=== PATIENT | female | born 1955 | race Caucasian/White ===

== ENCOUNTER 2017-03-07 08:29 | Day surgery (SDC) | payer MEDICAID ==
[~2017-03-07 08:29] MED LIST: Ciprofloxacin/Dexamethasone 0.3-0.1% Otic Susp 7.5 ML Bottle ONE; EPINEPHrine 1 MG/ML SDV ONE; Gelatin Sponge,Absorbable 12-7 mm Sponge TOP ONE; Lactated Ringers 1,000 ML IV SCH; Lidocaine 2% with EPINEPHrine 1:100,000 20 ML MDV ONE; Octyl 2-Cyanoacrylate 1 Tube ONE; ceFAZolin 2 GM in Premix Bag 1 BAG IV ONE
[2017-03-07] MEDS ORDERED: Lactated Ringers 1,000 ML IV SCH (09:15)
--- NOTE | 2017-03-07 09:57 | PCM.HP ---
H&P History of Present Illness - General Date of Service: 03/07/17 Admit Problem/Dx: Admission Diagnosis/Problem Admission Diagnosis/Problem Perforation of tympanic membrane - History of Present Illness Initial Comments - Free Text/Narative: Left ear infections - 1 year Is undergoing Left tympanoplasty today for above and dizziness and hearing loss Detailed history per clinic note dated 12/28/16 and 01/11/2017. NO change in medical issues / medications. Says she has been off heart medication - Related Data Allergies/Adverse Reactions: Allergies Allergy/AdvReac Type Severity Reaction Status Date / Time No Known Allergies Allergy Verified 01/25/17 12:33 Home Medications: Home Meds ALPRAZolam [Xanax] 1 mg PO TID 01/25/17 [History] Amitriptyline HCl 100 mg PO BEDTIME 01/25/17 [History] Butalb/Acetaminophen/Caffeine [Iwrobjaf-Dvsjnkyyeusns-Qrcf Cp] 1 - 2 tab PO ASDIRECTED PRN 01/25/17 [History] Isosorbide Mononitrate [Imdur] 30 mg PO DAILY PRN 01/25/17 [History] Lansoprazole [Prevacid] 30 mg PO ASDIRECTED 01/25/17 [History] Lisdexamfetamine Dimesylate [Vyvanse] 1 tab PO ASDIRECTED 01/25/17 [History] Lisdexamfetamine Dimesylate [Vyvanse] 50 mg PO DAILY 01/25/17 [History] Promethazine HCl 0.5 tab PO ASDIRECTED PRN 01/25/17 [History] QUEtiapine Fumarate [Seroquel] 50 mg PO BEDTIME 01/25/17 [History] Venlafaxine HCl [Venlafaxine HCl ER] 75 mg PO DAILY 01/25/17 [History] Venlafaxine HCl [Venlafaxine HCl ER] 150 mg PO DAILY 01/25/17 [History] Past Medical History HEENT History: Reports: Other (See Below) Other HEENT History: wears glasses, has top denture, tinnitus, ruptured tympanic membrane Gastrointestinal History: Reports: GERD Genitourinary History: Reports: None CLOTH REELER History: Reports: None Neurological History: Reports: Migraines Psychiatric History: Reports: Anxiety, Depression Endocrine/Metabolic History: Reports: Obesity/BMI 30+ Oncologic (Cancer) History: Reports: Breast - Past Surgical History Head Surgeries/Procedures: Reports: None Female Surgical History: Reports: Hysterectomy, Mastectomy, Oophorectomy Other Female Surgeries/Procedures: hysterectomy, inocencio breast mastectomy Oncologic Surgical History: Reports: Mastectomy Social & Family History - Tobacco Use Smoking Status *Q: Former Smoker Used Tobacco, but Quit: Yes Month Tobacco Last Used: quit smoking 1 yr ago - Caffeine Use Caffeine Use: Reports: Soda - Recreational Drug Use Recreational Drug Use: No Drug Use in Last 12 Months: No H&P Review of Systems - Review of Systems: Review Of Systems: ROS reveals no pertinent complaints other than HPI. Exam - Exam Exam: See Below - Vital Signs Vital Signs: Last Vital Signs Temp 37.5 C 03/07/17 08:42 Pulse 82 03/07/17 08:42 Resp 16 03/07/17 08:42 BP 106/57 L 03/07/17 08:42 Pulse Ox 95 03/07/17 08:42 Weight: 91.626 kg - Exam General: Alert, Oriented HEENT: EACs Clear, Nares Patent, Posterior Pharynx Clear, Other Neck: Supple, Trachea Midline Lungs: Clear to Auscultation Cardiovascular: Regular Rate, Regular Rhythm Physical Exam Comments:: Left Tympanic membrane - post small perforation present - approx 20%. Me - clear *Q Meaningful Use (ADM) - VTE *Q VTE Criteria *Q: - Stroke *Q Stroke Criteria *Q: - AMI *Q AMI Criteria *Q: Problem List Initiated/Reviewed/Updated: Yes Orders Last 24hrs: Active Orders 24 hr Category Date Time Status Lactated Ringers [Ringers, Lactated] 1,000 ml Med 03/07/17 09:15 Active IV ASDIRECTED Medication Orders Lactated Ringer's (Ringers, Lactated) 1,000 mls @ 125 mls/hr IV ASDIRECTED TIMOTHY Assessment/Plan Comment:: Left TM perforatio - For Left tympanoplasty under GA - Pre op orders in place
[2017-03-07] MEDS ORDERED: Propofol 200 MG/20 ML SDV ONE ×2 (10:17→12:08)
[2017-03-07] MEDS ORDERED: fentaNYL 100 MCG/2 ML SDV ONE ×3 (10:17→13:38)
[2017-03-07] MEDS ORDERED: Midazolam 1 MG/ML 2 ML SDV ONE (10:17)
[2017-03-07] MEDS ORDERED: Dexamethasone 4 MG/ML 5 ML MDV ONE (10:21)
[2017-03-07] MEDS ORDERED: Ondansetron 4 MG/2 ML SDV ONE (10:21)
--- NOTE | 2017-03-07 10:37 | PCM.PREANE ---
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 - tamoxifen daily) Pulmonary: No Symptoms Cardiovascular: Other (CAD using isorbide daily) Gastrointestinal: Other (GERD - treated daily) Neurological: No Symptoms Other: Reports: Depression, Anxiety - Physical Assessment NPO Status Date: 03/06/17 NPO Status Time: 23:30 O2 Sat by Pulse Oximetry: 95 Respiratory Rate: 16 Vital Signs: Last Vital Signs Temp 99.5 F 03/07/17 08:42 Pulse 82 03/07/17 08:42 Resp 16 03/07/17 08:42 BP 106/57 L 03/07/17 08:42 Pulse Ox 95 03/07/17 08:42 Height: 5 ft 4 in Weight: 202 lb ASA Class: 3 Mental Status: Alert & Oriented x3 Airway Class: Mallampati = 1 Dentition: Reports: Dentures (u/l removed) Thyro-Mental Finger Breadths: 4 Mouth Opening Finger Breadths: 3 ROM/Head Extension: Full Lungs: Clear to Auscultation, Normal Respiratory Effort Cardiovascular: Regular Rate, Regular Rhythm, No Murmurs - Imaging/EKG Impressions: Baseline EKG ordered since she is on cardioactive meds and carries Dx: CAD - Allergies Allergies/Adverse Reactions: Allergies Allergy/AdvReac Type Severity Reaction Status Date / Time No Known Allergies Allergy Verified 01/25/17 12:33 - Blood Blood Available: No Product(s) Available: None - Anesthesia Plan Pre-Op Medication Ordered: None - Acknowledgements Anesthesia Type Planned: General Anesthesia (OET) Pt an Appropriate Candidate for the Planned Anesthesia: Yes Alternatives and Risks of Anesthesia Discussed w Pt/Guardian: Yes Pt/Guardian Understands and Agrees with Anesthesia Plan: Yes PreAnesthesia Questionnaire HEENT History: Reports: Other (See Below) Other HEENT History: wears glasses, has top denture, tinnitus, ruptured tympanic membrane Gastrointestinal History: Reports: GERD Genitourinary History: Reports: None LINE DANCER History: Reports: None Neurological History: Reports: Migraines Psychiatric History: Reports: Anxiety, Depression Endocrine/Metabolic History: Reports: Obesity/BMI 30+ Oncologic (Cancer) History: Reports: Breast - Past Surgical History Head Surgeries/Procedures: Reports: None Female Surgical History: Reports: Hysterectomy, Mastectomy, Oophorectomy Other Female Surgeries/Procedures: hysterectomy, inocencio breast mastectomy Oncologic Surgical History: Reports: Mastectomy - SUBSTANCE USE Smoking Status *Q: Former Smoker Tobacco Use Within Last Twelve Months: No Recreational Drug Use History: No - HOME MEDS Home Medications: Home Meds ALPRAZolam [Xanax] 1 mg PO TID 01/25/17 [History] Amitriptyline HCl 100 mg PO BEDTIME 01/25/17 [History] Butalb/Acetaminophen/Caffeine [Clodbfgt-Dwjflfzjmkmrw-Rwxv Cp] 1 - 2 tab PO ASDIRECTED PRN 01/25/17 [History] Isosorbide Mononitrate [Imdur] 30 mg PO DAILY PRN 01/25/17 [History] Lansoprazole [Prevacid] 30 mg PO ASDIRECTED 01/25/17 [History] Lisdexamfetamine Dimesylate [Vyvanse] 1 tab PO ASDIRECTED 01/25/17 [History] Lisdexamfetamine Dimesylate [Vyvanse] 50 mg PO DAILY 01/25/17 [History] Promethazine HCl 0.5 tab PO ASDIRECTED PRN 01/25/17 [History] QUEtiapine Fumarate [Seroquel] 50 mg PO BEDTIME 01/25/17 [History] Venlafaxine HCl [Venlafaxine HCl ER] 75 mg PO DAILY 01/25/17 [History] Venlafaxine HCl [Venlafaxine HCl ER] 150 mg PO DAILY 01/25/17 [History] - CURRENT (IN HOUSE) MEDS Current Meds: Current Medications Lactated Ringer's (Ringers, Lactated) 1,000 mls @ 125 mls/hr IV ASDIRECTED TIMOTHY Discontinued Medications Ciprofloxacin/Dexamethasone (Ciprodex Otic Susp) Confirm Administered Dose 7.5 ml .ROUTE .STK-MED ONE Stop: 03/07/17 07:36 Dexamethasone (Dexamethasone) Confirm Administered Dose 20 mg .ROUTE .STK-MED ONE Stop: 03/07/17 10:22 Epinephrine HCl (Adrenalin 1:1000) Confirm Administered Dose 2 mg .ROUTE .STK- MED ONE Stop: 01/31/17 07:25 Epinephrine HCl (Adrenalin 1:1000) Confirm Administered Dose 1 mg .ROUTE .STK- MED ONE Stop: 03/07/17 07:36 Fentanyl (Sublimaze) Confirm Administered Dose 200 mcg .ROUTE .STK-MED ONE Stop: 03/07/17 10:18 Gelatin (Gelfoam 12-7 Mm) Confirm Administered Dose 1 each TOP .STK-MED ONE Stop: 01/31/17 07:25 Gelatin (Gelfoam 12-7 Mm) Confirm Administered Dose 1 each TOP .STK-MED ONE Stop: 03/07/17 07:36 Cefazolin Sodium/Dextrose 2 gm (/ Premix) 50 mls @ 100 mls/hr IV ONETIME ONE Stop: 01/30/17 17:40 Lactated Ringer's (Ringers, Lactated) 1,000 mls @ 125 mls/hr IV ASDIRECTED TIMOTHY Lidocaine HCl (Xylocaine-Mpf 1%) Confirm Administered Dose 5 ml .ROUTE .STK-MED ONE Stop: 03/07/17 10:22 Lidocaine/Epinephrine (Xylocaine 2% With Epinephrine 1:100,000) Confirm Administered Dose 20 ml .ROUTE .STK-MED ONE Stop: 01/31/17 07:26 Midazolam HCl (Versed 1 Mg/Ml) Confirm Administered Dose 2 mg .ROUTE .STK-MED ONE Stop: 03/07/17 10:18 Octyl Cyanoacrylate (Dermabond Advance) Confirm Administered Dose 1 applic .ROUTE .STK-MED ONE Stop: 01/31/17 07:26 Octyl Cyanoacrylate (Dermabond Advance) Confirm Administered Dose 1 applic .ROUTE .STK-MED ONE Stop: 03/07/17 07:37 Ondansetron HCl (Zofran) Confirm Administered Dose 4 mg .ROUTE .STK-MED ONE Stop: 03/07/17 10:22 Propofol (Diprivan 20 Ml) Confirm Administered Dose 200 mg .ROUTE .STK-MED ONE Stop: 03/07/17 10:18
--- NOTE | 2017-03-07 11:31 | PCM.OPNOTE ---
- General Post-Op/Procedure Note Date of Surgery/Procedure: 03/07/17 Condition: Good Free Text/Narrative:: Diagnosis: Left tympanic membrane perforation; left sided mild conductive hearing loss Procedure: Left tympanoplasty [ CPT 93417] Surgeon: Joann Mancini MD Anesthesia: GA Anesthesiologist: Dr Miller Date of procedure: 03/07/17 Indications: She presented to my office with c/o Left otalgia, intermittent tinnitus and vertigo. On Audiogram - she had a mild L conductive hearing loss. On exam she had a posterior L TM perforation as described. She was consented for surgery. Findings: Left tympanic membrane perforation - approximately 20%; posterior superior central; ISj visible through the perforation. All ossicles intact ; gentle movement of incus transmitted to the joint. Chorda tympani visualized and intact. Operation details: The patient was brought to the operating room. General anesthesia was administered with an endotracheal tube. He was appropriately positioned. An exam under microscope was performed-findings as above. A transcanal injection of 2% lidocaine with 1: 100, 000 epinephrine was performed. Postauricular area was also injected. A total of 2 mils was used. The part was prepped and draped in a standard sterile fashion. The microscope was brought in. A horizontal transverse canal wall incision was made with a round knife approximately 5 mm lateral to the annulus starting at 6 o'clock position and extending to 12 o ' clock. A cotton wool wall soaked in 1:1000 epinephrine was then left in the ear canal. Microscope was moved out. Postauricular incision was made extending from the root of pinna superiorly to the level of the floor of external auditory canal inferiorly approximately 5 mm from the post auricular groove with a 15 blade. Superiorly dissection was carried out with a hemostat and temporalis fascia was exposed. A 3 pronged self- retaining retractor was applied. Further retraction was done with the Sen retractor. Incision in the fascia was made with a 15 blade. Fascia was freed from the underlying temporalis muscle with a Watson elevator. An appropriately sized piece of fascia was removed with iris scissors. Hemostasis was ensured. The graft was cleaned and left to dry up on a block. Further post auricular dissection was performed and the U-shaped fascio periosteal flap adjacent to the external auditory canal was made. This flap was further dissected with freer and periosteal dissector , continuing this dissection over to the canal wall till the previously made horizontal transcanal incision was reached. At this point the cotton wool was removed, a quarter inch Eckerman drain was introduced and held in place with a clamp to hold the pinna forward. Also a right sided plester self retaining retractor was applied to help retain the pinna forward. Edges of the perforation were freshened with a curved needle. Tympanomeatal flap was elevated with a round knife and flap elevator, till the canal wall was seen dipping at the annulus. Annulus was freed inferiorly and a tympanotomy was performed. Middle ear mucosa was resected with a needle. The elevation of the annulus was performed superiorly up to 12:00 position. The ossicles were intact. The tendon of tensor tympani was resected;the tympanic membrane was dissected off the chorda tympani and adjacent handle of malleus. Middle ear was packed with Gelfoam soaked in Ciprodex. The temporalis fascia graft was appropriately sized and introduced as an underlay technique, overlying the chorda and tucked under the superior aspect of handle of malleus; remaining part was underlying handle of malleus. All edges of the graft were tucked medial to the annulus and edges of the perforation. The tympanomeatal flap was laid back over the graft. Further pieces of Gelfoam soaked in Ciprodex were placed over the graft and tympanic membrane. The Ricardo drain was removed and the lateral flap was laid back carefully over the canal wall. Outer aspect of the external canal was packed with Adaptic dressing soaked in bacitracin ointment as a roll and then as a strip dressing. Postauricular wound was sutured in layers- flap with 3-0 Vicryl, fascia and subcutaneous tissue and with 3-0 Vicryl and subcuticular 4-0 Monocryl. Dermabond was applied to the skin.. Complete hemostasis was ensured. A pressure dressing was applied. This concluded the procedure. The patient was turned over to the anesthesia team for recovery. Specimens: none IV fluids: 1500 ml Blood loss : 5 ml Blood products: nil Disposition: PACU for recovery Follow up: In 1 day for removal of head bandage.
[2017-03-07] MEDS ORDERED: Ciprofloxacin/Dexamethasone 0.3-0.1% Otic Susp 7.5 ML Bottle ONE (11:42)
[2017-03-07] MEDS ORDERED: Rocuronium 10 MG/ML 10 ML Syringe ONE (12:08)
[2017-03-07] MEDS ORDERED: Phenylephrine/Normal Saline 100 MCG/ML 10 ML Syringe ONE (12:13)
[2017-03-07] MEDS ORDERED: Gelatin Sponge,Absorbable 12-7 mm Sponge TOP ONE (14:24)
[2017-03-07] MEDS ORDERED: Neostigmine Methylsulfate 1 MG/ML 5 ML Syringe ONE (14:30)
--- NOTE | 2017-03-07 15:32 | PCM.POSTAN ---
POST ANESTHESIA ASSESSMENT - MENTAL STATUS Mental Status: Alert, Oriented - RESPIRATORY Respiratory Status: Respiratory Rate WNL, Airway Patent, O2 Saturation Stable - CARDIOVASCULAR CV Status: Pulse Rate WNL, Blood Pressure Stable - GASTROINTESTINAL GI Status: No Symptoms - PAIN Pain Score: 0 - POST OP HYDRATION Hydration Status: Adequate & Stable
[2017-03-07] MEDS ORDERED: Acetaminophen/oxyCODONE 325-5 MG Tab PO PRN (15:35)
[2017-03-07] MEDS ORDERED: Ondansetron 4 MG/2 ML SDV IVPUSH PRN (15:35)
[2017-03-07] MEDS ORDERED: Haloperidol Lactate 5 MG/ML SDV IM ONE (15:42)
[2017-03-07] MEDS ORDERED: Ketorolac 30 MG/ML SDV IM ONE (15:44)
[2017-03-07 17:08] VITALS: BP 115/51
--- NOTE | 2017-03-07 17:16 | PCM48HPAN ---
Post Anesthesia Note - EVALUATION WITHIN 48HRS OF ANESTHETIC Vital Signs in Normal Range: Yes Patient Participated in Evaluation: Yes Respiratory Function Stable: Yes Airway Patent: Yes Cardiovascular Function Stable: Yes Hydration Status Stable: Yes Pain Control Satisfactory: Yes Nausea and Vomiting Control Satisfactory: Yes Mental Status Recovered: Yes
== END 2017-03-07 17:00 | disposition home or self-care (01) ==
LOC: MW.SDS 08:29
PROVIDERS: ATTEND Otolaryngology
DX: H72.92 Unspecified perforation of tympanic membrane, left ear (principal); H90.2 Conductive hearing loss, unspecified; K21.9 Gastro-esophageal reflux disease without esophagitis; G43.909 Migraine, unspecified, not intractable, without status migrainosus; F41.9 Anxiety disorder, unspecified; F32.9 Major depressive disorder, single episode, unspecified; E66.9 Obesity, unspecified; Z85.3 Personal history of malignant neoplasm of breast; Z87.891 Personal history of nicotine dependence; Z90.13 Acquired absence of bilateral breasts and nipples; Z90.710 Acquired absence of both cervix and uterus; Z90.721 Acquired absence of ovaries, unilateral; Z79.899 Other long term (current) drug therapy; Z68.35 Body mass index [BMI] 35.0-35.9, adult
CPT/HCPCS: 69643; 93005; A9270; J0171; J1100; J1630; J1885; J2250; J2405; J3010; 00126; J2704

== ENCOUNTER 2020-03-08 01:48 | Emergency (ER) | payer MEDICARE, MEDICAID ==
[2020-03-08] MEDS ORDERED: Sodium Chloride 0.9% 10 ML Syringe FLUSH PRN (02:02)
[2020-03-08] MEDS ORDERED: LORazepam 2 MG/ML SDV IVPUSH ONE (02:02)
[2020-03-08] MEDS ORDERED: Famotidine 20 MG/2 ML SDV IVPUSH ONE (02:02)
[2020-03-08] MEDS ORDERED: Sodium Chloride 0.9% 1,000 ML IV ONE (02:02)
[2020-03-08] MEDS ORDERED: Sodium Chloride 0.9% 2.5 ML Syringe FLUSH PRN (02:02)
[2020-03-08] MEDS ORDERED: Ondansetron 4 MG/2 ML SDV IVPUSH ONE ×2 (02:02→05:29)
--- NOTE | 2020-03-08 02:10 | EDM.PDOC ---
ED HPI GENERAL MEDICAL PROBLEM - General Chief Complaint: Gastrointestinal Problem Stated Complaint: CHEST PAIN, SHORTNESS OF BREATH Time Seen by Provider: 03/08/20 01:50 Source of Information: Reports: Patient History Limitations: Reports: No Limitations - History of Present Illness INITIAL COMMENTS - FREE TEXT/NARRATIVE: History of present illness: [Patient 65-year-old female who presents with constipation and indigestion. She states that she has not been able to poop in about 5 days. Her PCP told her to start taking Senokot which she did but this has not resulted in a bowel movement yet. She states that because of the symptoms she was scheduled get a CT scan in 2 days time. She developed indigestion earlier this evening in spite of not having had anything recently to eat, she thought that was odd and thought maybe it was related to the constipation and that maybe she has a obstruction of some kind. She denies chest pain, she says the discomfort occasionally makes her short of breath. She said the symptoms have exacerbated her anxiety for which she takes Ativan at home. She denies fever and chills. ] Review of systems: As per history of present illness and below otherwise all systems reviewed and negative. Past medical history: As per history of present illness and as reviewed below otherwise noncontributory. Surgical history: As per history of present illness and as reviewed below otherwise noncontributory. Social history: No reported history of drug or alcohol abuse. Family history: As per history of present illness and as reviewed below otherwise noncontributory. Physical exam: General: Awake, alert, no acute distress, A&O X3, anxious HEENT: Atraumatic, normocephalic, pupils reactive, negative for conjunctival pallor or scleral icterus, mucous membranes moist, throat clear, neck supple, nontender, trachea midline. Lungs: Clear to auscultation, breath sounds equal bilaterally, chest nontender. Heart: RRR, normal S1S2, no JVD. Abdomen: Soft, nondistended, nontender. Negative for masses or hepatosplenomegaly. Negative for costovertebral tenderness. Pelvis: Stable nontender. Genitourinary: Deferred. Rectal: Deferred. Extremities: Atraumatic, no edema, Neurovascular unremarkable. Neuro: Motor and sensory grossly intact throughout. Exam nonfocal. Diagnostics: [] Therapeutics: [] Impression: [] Plan: [] Definitive disposition and diagnosis as appropriate pending reevaluation and review of above. Left Middle Abdomen Pain Score (Numeric/FACES): 4 - Related Data Allergies Allergy/AdvReac Type Severity Reaction Status Date / Time No Known Allergies Allergy Verified 03/08/20 01:58 Home Meds: Home Meds Amitriptyline HCl 100 mg PO BEDTIME 01/25/17 [History] Butalb/Acetaminophen/Caffeine [Phunidrs-Jkpuzbxyyhoor-Wcfh Cp] 1 - 2 tab PO ASDIRECTED PRN 01/25/17 [History] Lansoprazole [Prevacid] 30 mg PO ASDIRECTED 01/25/17 [History] Venlafaxine HCl [Venlafaxine HCl ER] 75 mg PO DAILY 01/25/17 [History] Venlafaxine HCl [Venlafaxine HCl ER] 150 mg PO DAILY 01/25/17 [History] LORazepam [Ativan] 1 mg PO TID 03/08/20 [History] atorvaSTATin Calcium [Lipitor] 20 mg PO DAILY 03/08/20 [History] metFORMIN HCl [Metformin HCl ER] 750 mg PO BEDTIME 03/08/20 [History] Past Medical History HEENT History: Reports: Other (See Below) Other HEENT History: wears glasses, has top denture, tinnitus, ruptured tympanic membrane Gastrointestinal History: Reports: GERD Genitourinary History: Reports: None 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: None Neurological History: Reports: Migraines Psychiatric History: Reports: Anxiety, Depression Endocrine/Metabolic History: Reports: Obesity/BMI 30+ Oncologic (Cancer) History: Reports: Breast - Past Surgical History Head Surgeries/Procedures: Reports: None Female Surgical History: Reports: Hysterectomy, Mastectomy, Oophorectomy Other Female Surgeries/Procedures: hysterectomy, inocencio breast mastectomy Oncologic Surgical History: Reports: Mastectomy Social & Family History - Caffeine Use Caffeine Use: Reports: Soda ED ROS GENERAL - Review of Systems Review Of Systems: Comprehensive ROS is negative, except as noted in HPI. ED EXAM, GI/ABD - Physical Exam Exam: See Below (see h and p) EKG INTERPRETATION EKG Date: 03/08/20 Time: 01:52 Rhythm: NSR Rate (Beats/Min): 121 QRS: RBBB (LAFB) Comparison: Change From Previous EKG (the LAFB is more pronounced compared to EKG on 03-07-17) Course - Vital Signs Text/Narrative:: Patient had negative serial troponins, CT scan shows possible sclerosing mesenteritis, but otherwise no evidence for diverticulitis, no evidence for acute obstruction, no evidence for surgical emergency or obvious infectious etiology. Ultrasound shows biliary sludge in the gallbladder, but no evidence for cholecystitis, no gallbladder wall thickening, no pericholecystic fluid. She has benign belly exam. No point tenderness. No rebound or guarding. Her initial tachycardia improved, on reevaluation her heart rate was right around 100. She received medications both for anxiety, and indigestion and for constipation including magnesium citrate. She did not produce a bowel movement here. We discussed possibly using an enema, she declined stating she would rather try to produce a bowel movement with oral medications. I discussed with her using MiraLAX at home, [id number], twice a day in juice or water as needed to help soften the stool as well. Her EKG is nonischemic, she has no active chest pain, she is not short of breath, chest x-ray was clear. She does have an elevated white blood cell count. Her lactic acid is normal. I do not see convincing evidence that she has a bacterial infection requiring antibiotics. She has no fever, no vomiting, is otherwise well-appearing and laughing with me in the room at the time of reassessment. Does not appear to be in any distress. UA was reassuring. Her creatinine is mildly elevated, I have no old lab values to compare this to, patient does tell me that she has been told in the past that her kidneys were "slow." She otherwise has no significant electrolyte derangements and she is producing urine here in the ED. Using a shared decision-making model we agreed to do a trial at home to see if after having a bowel movement her symptoms improve. Strict return precautions were provided which include intractable nausea vomiting, severe worsening abdominal pain, persistent high fever, etc. Patient understands this plan and she is agreeable with. She showed clinical improvement during her emergency department stay. She is nontoxic in appearance with a benign exam. Vital signs also improved prior to discharge. Last Recorded V/S: Last Vital Signs Temp 36.3 C 03/08/20 01:53 Pulse 102 H 03/08/20 05:45 Resp 16 03/08/20 05:45 BP 146/59 H 03/08/20 05:45 Pulse Ox 97 03/08/20 05:45 - Orders/Labs/Meds Orders: Active Orders 24 hr Category Date Time Status EKG Documentation Completion [RC] STAT Care 03/08/20 02:14 Active Sodium Chloride 0.9% [Saline Flush] Med 03/08/20 02:02 Active 10 ml FLUSH ASDIRECTED PRN Sodium Chloride 0.9% [Saline Flush] Med 03/08/20 02:02 Active 2.5 ml FLUSH ASDIRECTED PRN Saline Lock Insert [OM.PC] Stat Oth 03/08/20 02:02 Ordered Medication Orders Sodium Chloride (Saline Flush) 10 ml FLUSH ASDIRECTED PRN PRN Reason: Keep Vein Open Sodium Chloride (Saline Flush) 2.5 ml FLUSH ASDIRECTED PRN PRN Reason: Keep Vein Open Labs: Laboratory Tests 03/08/20 03/08/20 03/08/20 Range/Units 02:00 02:00 02:00 WBC 19.63 H (4.0-11.0) K/uL RBC 3.56 L (4.30-5.90) M/uL Hgb 11.0 L (12.0-16.0) g/dL Hct 35.1 L (36.0-46.0) % MCV 98.6 H (80.0-98.0) fL MCH 30.9 (27.0-32.0) pg MCHC 31.3 (31.0-37.0) g/dL RDW Std Deviation 48.8 (28.0-62.0) fl RDW Coeff of Hira 14 (11.0-15.0) % Plt Count 406 H (150-400) K/uL MPV 9.60 (7.40-12.00) fL Neut % (Auto) 82.5 H (48.0-80.0) % Lymph % (Auto) 12.7 L (16.0-40.0) % Florence % (Auto) 3.9 (0.0-15.0) % Eos % (Auto) 0.6 (0.0-7.0) % Baso % (Auto) 0.3 (0.0-1.5) % Neut # (Auto) 16.2 H (1.4-5.7) K/uL Lymph # (Auto) 2.5 H (0.6-2.4) K/uL Florence # (Auto) 0.8 (0.0-0.8) K/uL Eos # (Auto) 0.1 (0.0-0.7) K/uL Baso # (Auto) 0.1 (0.0-0.1) K/uL Nucleated RBC % 0.0 /100WBC Nucleated RBCs # 0 K/uL Lactate 1.8 (0.20-2.00) mmol/L Sodium 136 (136-145) mmol/L Potassium 4.3 (3.5-5.1) mmol/L Chloride 100 (98-107) mmol/L Carbon Dioxide 20.9 L (21.0-32.0) mmol/L BUN 23 H (7.0-18.0) mg/dL Creatinine 1.7 H (0.6-1.0) mg/dL Est Cr Clr Drug Dosing 26.93 mL/min Estimated GFR (MDRD) 30.1 ml/min Glucose 198 H (74-106) mg/dL Calcium 8.4 L (8.5-10.1) mg/dL Total Bilirubin 0.3 (0.2-1.0) mg/dL AST 23 (15-37) IU/L ALT 30 (14-63) IU/L Alkaline Phosphatase 84 (46-116) U/L Troponin I < 0.050 (0.000-0.056) ng/mL Total Protein 7.6 (6.4-8.2) g/dL Albumin 3.5 (3.4-5.0) g/dL Globulin 4.1 H (2.6-4.0) g/dL Albumin/Globulin Ratio 0.9 (0.9-1.6) Lipase 37 L (73-393) U/L Urine Color Urine Appearance Urine pH (5.0-8.0) Ur Specific Chapin (1.001-1.035) Urine Protein (NEGATIVE) mg/dL Urine Glucose (UA) (NEGATIVE) mg/dL Urine Ketones (NEGATIVE) mg/dL Urine Occult Blood (NEGATIVE) Urine Nitrite (NEGATIVE) Urine Bilirubin (NEGATIVE) Urine Urobilinogen (<2.0) EU/dL Ur Leukocyte Esterase (NEGATIVE) Urine RBC (0-2/HPF) Urine WBC (0-5/HPF) Ur Epithelial Cells (NONE-FEW) Urine Bacteria (NEGATIVE) 03/08/20 03/08/20 Range/Units 04:00 05:25 WBC (4.0-11.0) K/uL RBC (4.30-5.90) M/uL Hgb (12.0-16.0) g/dL Hct (36.0-46.0) % MCV (80.0-98.0) fL MCH (27.0-32.0) pg MCHC (31.0-37.0) g/dL RDW Std Deviation (28.0-62.0) fl RDW Coeff of Hira (11.0-15.0) % Plt Count (150-400) K/uL MPV (7.40-12.00) fL Neut % (Auto) (48.0-80.0) % Lymph % (Auto) (16.0-40.0) % Florence % (Auto) (0.0-15.0) % Eos % (Auto) (0.0-7.0) % Baso % (Auto) (0.0-1.5) % Neut # (Auto) (1.4-5.7) K/uL Lymph # (Auto) (0.6-2.4) K/uL Florence # (Auto) (0.0-0.8) K/uL Eos # (Auto) (0.0-0.7) K/uL Baso # (Auto) (0.0-0.1) K/uL Nucleated RBC % /100WBC Nucleated RBCs # K/uL Lactate (0.20-2.00) mmol/L Sodium (136-145) mmol/L Potassium (3.5-5.1) mmol/L Chloride (98-107) mmol/L Carbon Dioxide (21.0-32.0) mmol/L BUN (7.0-18.0) mg/dL Creatinine (0.6-1.0) mg/dL Est Cr Clr Drug Dosing mL/min Estimated GFR (MDRD) ml/min Glucose (74-106) mg/dL Calcium (8.5-10.1) mg/dL Total Bilirubin (0.2-1.0) mg/dL AST (15-37) IU/L ALT (14-63) IU/L Alkaline Phosphatase (46-116) U/L Troponin I < 0.050 (0.000-0.056) ng/mL Total Protein (6.4-8.2) g/dL Albumin (3.4-5.0) g/dL Globulin (2.6-4.0) g/dL Albumin/Globulin Ratio (0.9-1.6) Lipase (73-393) U/L Urine Color YELLOW Urine Appearance CLEAR Urine pH 6.0 (5.0-8.0) Ur Specific Chapin 1.010 (1.001-1.035) Urine Protein TRACE H (NEGATIVE) mg/dL Urine Glucose (UA) NEGATIVE (NEGATIVE) mg/dL Urine Ketones NEGATIVE (NEGATIVE) mg/dL Urine Occult Blood SMALL H (NEGATIVE) Urine Nitrite NEGATIVE (NEGATIVE) Urine Bilirubin NEGATIVE (NEGATIVE) Urine Urobilinogen 0.2 (<2.0) EU/dL Ur Leukocyte Esterase NEGATIVE (NEGATIVE) Urine RBC 2-5 (0-2/HPF) Urine WBC 0-1 (0-5/HPF) Ur Epithelial Cells FEW (NONE-FEW) Urine Bacteria RARE (NEGATIVE) Meds: Medications Generic Name Dose Route Start Last Admin Trade Name Freq PRN Reason Stop Dose Admin Sodium Chloride 10 ml 03/08/20 02:02 Saline Flush FLUSH ASDIRECTED PRN Keep Vein Open Sodium Chloride 2.5 ml 03/08/20 02:02 Saline Flush FLUSH ASDIRECTED PRN Keep Vein Open Discontinued Medications Generic Name Dose Route Start Last Admin Trade Name Freq PRN Reason Stop Dose Admin Al Hydroxide/Mg Hydroxide 15 0 ml 03/08/20 05:29 03/08/20 05:35 ml/ Lidocaine HCl 5 ml PO 03/08/20 05:30 1 each ONETIME ONE Administration Famotidine 20 mg 03/08/20 02:02 03/08/20 02:18 Pepcid IVPUSH 03/08/20 02:03 20 mg ONETIME ONE Administration Sodium Chloride 1,000 mls @ 999 mls/hr 03/08/20 02:02 03/08/20 02:16 Normal Saline IV 03/08/20 03:02 999 mls/hr .Bolus ONE Administration Sodium Chloride 2,000 mls @ 1,000 mls/hr 03/08/20 02:34 03/08/20 03:30 Normal Saline IV 03/08/20 04:33 1,000 mls/hr .Bolus ONE Administration Lorazepam 1 mg 03/08/20 02:02 03/08/20 02:20 Ativan IVPUSH 03/08/20 02:03 1 mg ONETIME ONE Administration Magnesium Citrate 0 ml 03/08/20 04:17 03/08/20 04:29 Citrate Of Magnesia PO 03/08/20 04:18 296 ml ONETIME ONE Administration Ondansetron HCl 4 mg 03/08/20 02:02 03/08/20 02:17 Zofran IVPUSH 03/08/20 02:03 4 mg ONETIME ONE Administration Ondansetron HCl 4 mg 03/08/20 05:29 03/08/20 05:35 Zofran IVPUSH 03/08/20 05:30 4 mg ONETIME ONE Administration Departure - Departure Time of Disposition: 06:35 Disposition: Home, Self-Care 01 Condition: Good Clinical Impression: Constipation, Indigestion - Discharge Information Instructions: Indigestion, [id number], Constipation, Adult, [id number] Referrals: Migdalia Haney NP [Primary Care Provider] - Forms: ED Department Discharge Additional Instructions: Follow-up with primary care doctor. Take all medications as previously prescribed. Return to the ER with any new or worsening symptoms. The following information is given to patients seen in the emergency department who are being discharged to home. This information is to outline your options for follow-up care. We provide all patients seen in our emergency department with a follow-up referral. The need for follow-up, as well as the timing and circumstances, are variable depending upon the specifics of your emergency department visit. If you don't have a primary care physician on staff, we will provide you with a referral. We always advise you to contact your personal physician following an emergency department visit to inform them of the circumstance of the visit and for follow-up with them and/or the need for any referrals to a consulting specialist. The emergency department will also refer you to a specialist when appropriate. This referral assures that you have the opportunity for follow-up care with a specialist. All of these measure are taken in an effort to provide you with optimal care, which includes your follow-up. Under all circumstances we always encourage you to contact your private physician who remains a resource for coordinating your care. When calling for follow-up care, please make the office aware that this follow-up is from your recent emergency room visit. If for any reason you are refused follow-up, please contact the [facility] Emergency Department at and asked to speak to the emergency department charge nurse. Sepsis Event Note (ED) - Evaluation Sepsis Screening Result: No Definite Risk - Focused Exam Vital Signs: Vital Signs Temp Pulse Resp BP Pulse Ox 03/08/20 05:45 102 H 16 146/59 H 97 03/08/20 04:33 107 H 16 126/66 94 L 03/08/20 03:39 100 16 126/59 L 96 03/08/20 01:53 36.3 C 121 H 26 H 111/45 L 94 L - My Orders Last 24 Hours: My Active Orders 03/08/20 02:02 Sodium Chloride 0.9% [Saline Flush] 10 ml FLUSH ASDIRECTED PRN Sodium Chloride 0.9% [Saline Flush] 2.5 ml FLUSH ASDIRECTED PRN Saline Lock Insert [OM.PC] Stat 03/08/20 02:14 EKG Documentation Completion [RC] STAT - Assessment/Plan Last 24 Hours: My Active Orders 03/08/20 02:02 Sodium Chloride 0.9% [Saline Flush] 10 ml FLUSH ASDIRECTED PRN Sodium Chloride 0.9% [Saline Flush] 2.5 ml FLUSH ASDIRECTED PRN Saline Lock Insert [OM.PC] Stat 03/08/20 02:14 EKG Documentation Completion [RC] STAT
[2020-03-08] MEDS ORDERED: Sodium Chloride 0.9% 2,000 ML IV ONE (02:34)
[2020-03-08 02:35] LABS: BLOOD UREA NITROGEN,BUN 23 mg/dL (7.0-18.0); CARBON DIOXIDE,CO2 20.9 mmol/L (21.0-32.0); CHLORIDE,CL 100 mmol/L (98-107); GLUCOSE RANDOM 198 mg/dL (74-106); LIPASE 37 U/L (73-393); POTASSIUM,K 4.3 mmol/L (3.5-5.1); SODIUM,NA 136 mmol/L (136-145)
--- NOTE | 2020-03-08 03:48 | CR ---
Indication : Indigestion. FINDINGS: A single portable chest x-ray shows a normal cardiac silhouette. The lungs show a small calcified granuloma in the lower right lung. No other focal pulmonary opacities. Sharp pleural margins. No pneumothorax. IMPRESSION: No evidence of acute pulmonary abnormalities. Dictated by Hernan Morataya MD @ 03/08/2020 3:47:32 AM Dictated by: Hernan Morataya MD @ 03/08/2020 03:47:50 (Electronically Signed)
--- NOTE | 2020-03-08 04:09 | CT ---
INDICATION : Post prandial pain. Elevated white cell count. Question diverticulitis. COMPARISON: None. FINDINGS: Upper normal size of the gallbladder. No significant inflammation or filling defects. Constipation through the redundant colon. No air or fluid in the peritoneum. 2 mm upper midpole calyceal calculus left kidney. IMPRESSION: 1. Query hydropic gallbladder. No acute inflammation. Consider all sound further tears a carrillo. 2. Acute on chronic constipation. Please note that all CT scans at this facility use dose modulation, iterative reconstruction, and/or weight-based dosing when appropriate to reduce radiation dose to as low as reasonably achievable. Dictated by Roberto Meadows MD @ Mar 08 2020 2:40PM Signed by Dr. Roberto Meadows @ Mar 08 2020 2:56PM
[2020-03-08] MEDS ORDERED: Magnesium Citrate Solution 296 ML Bottle PO ONE (04:17)
[2020-03-08] MEDS ORDERED: Alum Hydrox/Mag Hydrox/Simeth 15 ML, Lidocaine 2% 5 ML PO ONE ×2 (05:29)
--- NOTE | 2020-03-08 06:14 | US ---
INDICATION: Evaluate gallbladder. COMPARISON: CT of the abdomen and pelvis 03/08/2020 at 3:04 a.m. TECHNIQUE: Real time kent scale imaging and color Doppler analysis was performed of the right upper quadrant. FINDINGS: Liver: Liver size upper limits of normal measuring 18.1 cm in length. Normal echogenicity. No focal liver lesions. Gallbladder: Small amount of sludge within the gallbladder. No stones. No wall thickening or pericholecystic fluid. Negative sonographic Granda sign. Bile ducts: The common bile duct measures 6 mm in diameter which is upper limits of normal. No intrahepatic bile duct dilation. Pancreas: Not well seen due to shadowing bowel gas. Right kidney: The right kidney measures 10.1 cm in length. No hydronephrosis, calculus, or mass. Vascular: The IVC is patent. The abdominal aorta was not well seen due to shadowing bowel gas. IMPRESSION: 1. Small amount of gallbladder sludge without evidence of cholecystitis. 2. Exam is otherwise unremarkable. Dictated by Michell Roman MD @ Mar 08 2020 6:04AM Signed by Dr. Michell Roman @ Mar 08 2020 6:12AM
[2020-03-08 06:54] VITALS: BP 134/62; PULSE 98
== END 2020-03-08 06:51 | disposition home or self-care (01) ==
LOC: MW.ED 01:48
DX: K30 Functional dyspepsia (principal); F41.9 Anxiety disorder, unspecified; F32.9 Major depressive disorder, single episode, unspecified; E66.9 Obesity, unspecified; G43.909 Migraine, unspecified, not intractable, without status migrainosus; Z90.710 Acquired absence of both cervix and uterus; Z79.899 Other long term (current) drug therapy; Z68.34 Body mass index [BMI] 34.0-34.9, adult
CPT/HCPCS: 36415; 71045; 74176; 76705; 80053; 81001; 83605; 83690; 84484; 85025; 93005; 96361; 96374; 96375; 96376; 99284; A9270; J2060; J2405; J3490; J7030; 93010

== ENCOUNTER 2022-12-14 14:48 | Emergency (ER) | payer MEDICARE, MEDICAID ==
[2022-12-14 15:50] VITALS: BP 154/72; PULSE 74
== END 2022-12-14 15:54 | disposition left against medical advice (07) ==
LOC: MW.ED 14:48
DX: R07.9 Chest pain, unspecified (principal); Z53.29 Procedure and treatment not carried out because of patient's decision for other reasons; E11.9 Type 2 diabetes mellitus without complications; I10 Essential (primary) hypertension; K21.9 Gastro-esophageal reflux disease without esophagitis; E66.9 Obesity, unspecified; I25.2 Old myocardial infarction; Z79.899 Other long term (current) drug therapy; Z79.84 Long term (current) use of oral hypoglycemic drugs; Z68.22 Body mass index [BMI] 22.0-22.9, adult
CPT/HCPCS: 93005; 93010; 99282; 99284

== ENCOUNTER 2023-01-23 17:55 | Emergency (ER) | payer MEDICARE, MEDICAID ==
[2023-01-23] MEDS ORDERED: Sodium Chloride 0.9% 2.5 ML Syringe FLUSH PRN (17:59)
[2023-01-23] MEDS ORDERED: Sodium Chloride 0.9% 10 ML Syringe FLUSH PRN (17:59)
[2023-01-23 18:51] LABS: BASOPHILS ABSOLUTE AUTO 0.1 K/uL (0.0-0.1); BASOPHILS PERCENT AUTO 2.2 % (0.0-1.5); EOSINOPHILS ABSOLUTE AUTO 0.1 K/uL (0.0-0.7); EOSINOPHILS PERCENT AUTO 1.8 % (0.0-7.0); HEMATOCRIT 20.8 % (36.0-46.0); HEMOGLOBIN 6.7 g/dL (12.0-16.0); LYMPHOCYTES ABSOLUTE AUTO 1.6 K/uL (0.6-2.4); LYMPHOCYTES PERCENT AUTO 26.3 % (16.0-40.0); MEAN CORPUSCULAR HEMOGLOBIN 30.7 pg (27.0-32.0); MEAN CORPUSCULAR HGB CONC 32.2 g/dL (31.0-37.0); MEAN CORPUSCULAR VOLUME 95.4 fL (80.0-98.0); MONOCYTES ABSOLUTE AUTO 0.5 K/uL (0.0-0.8); NEUTROPHILS ABSOLUTE AUTO 3.7 K/uL (1.4-5.7); NEUTROPHILS PERCENT AUTO 60.7 % (48.0-80.0); NRBC ABSOLUTE 0 K/uL; PLATELET COUNT,PLT 222 K/uL (150-400); RED BLOOD CELL COUNT 2.18 M/uL (4.30-5.90); WHITE BLOOD CELL COUNT,WBC 6.01 K/uL (4.0-11.0)
[2023-01-23 19:13] LABS: A/G RATIO 0.9 (0.9-1.6); ALANINE AMINOTRANSFERASE,ALT 33 IU/L (14-63); ALBUMIN 3.4 g/dL (3.4-5.0); ALKALINE PHOSPHATASE 61 U/L (46-116); ASPARTATE AMNIOTRANSFERASE,AST 19 IU/L (15-37); BILIRUBIN TOTAL 0.4 mg/dL (0.2-1.0); BLOOD UREA NITROGEN,BUN 16 mg/dL (7.0-18.0); CALCIUM 8.2 mg/dL (8.5-10.1); CHLORIDE,CL 93 mmol/L (98-107); CREATININE 2.8 mg/dL (0.6-1.0); GLUCOSE RANDOM 84 mg/dL (74-106); POTASSIUM,K 3.1 mmol/L (3.5-5.1); PROTEIN TOTAL,TP 7.2 g/dL (6.4-8.2); SODIUM,NA 132 mmol/L (136-145)
[2023-01-23 19:23] LABS: ESTIMATED GFR 18 mL/min (>60)
[2023-01-23 22:09] LABS: BASOPHILS ABSOLUTE AUTO 0.1 K/uL (0.0-0.1); BASOPHILS PERCENT AUTO 1.3 % (0.0-1.5); EOSINOPHILS ABSOLUTE AUTO 0.2 K/uL (0.0-0.7); EOSINOPHILS PERCENT AUTO 2.5 % (0.0-7.0); HEMATOCRIT 18.9 % (36.0-46.0); HEMOGLOBIN 6.1 g/dL (12.0-16.0); LYMPHOCYTES ABSOLUTE AUTO 1.3 K/uL (0.6-2.4); LYMPHOCYTES PERCENT AUTO 20.7 % (16.0-40.0); MEAN CORPUSCULAR HEMOGLOBIN 30.7 pg (27.0-32.0); MEAN CORPUSCULAR HGB CONC 32.3 g/dL (31.0-37.0); MONOCYTES ABSOLUTE AUTO 0.8 K/uL (0.0-0.8); MONOCYTES PERCENT AUTO 13.6 % (0.0-15.0); NEUTROPHILS ABSOLUTE AUTO 3.7 K/uL (1.4-5.7); NEUTROPHILS PERCENT AUTO 61.9 % (48.0-80.0); NRBC ABSOLUTE 0 K/uL; PLATELET COUNT,PLT 191 K/uL (150-400); RED BLOOD CELL COUNT 1.99 M/uL (4.30-5.90); WHITE BLOOD CELL COUNT,WBC 6.04 K/uL (4.0-11.0)
[2023-01-24 00:06] VITALS: BP 128/52; PULSE 73
== END 2023-01-24 00:05 | disposition home or self-care (01) ==
LOC: MW.ED 17:55
DX: D64.9 Anemia, unspecified (principal); N18.6 End stage renal disease; R07.9 Chest pain, unspecified; I25.2 Old myocardial infarction; E66.9 Obesity, unspecified; Z99.2 Dependence on renal dialysis
CPT/HCPCS: 36415; 36430; 71045; 80053; 83010; 84484; 85025; 86850; 86900; 86901; 86920; 93005; 99284; J3490; P9016; 93010; 99285

== ENCOUNTER 2023-01-25 16:37 | Emergency (ER) | payer MEDICARE, MEDICAID ==
[2023-01-25] MEDS ORDERED: Sodium Chloride 0.9% 2.5 ML Syringe FLUSH PRN (17:54)
[2023-01-25] MEDS ORDERED: Sodium Chloride 0.9% 10 ML Syringe FLUSH PRN (17:54)
[2023-01-25] MEDS ORDERED: levETIRAcetam 500 MG Tab PO STA (18:00)
[2023-01-25] MEDS ORDERED: LORazepam 0.5 MG Tab PO STA (18:01)
[2023-01-25 18:20] LABS: HEMATOCRIT 22.7 % (36.0-46.0); HEMOGLOBIN 7.2 g/dL (12.0-16.0)
[2023-01-26 00:54] VITALS: BP 162/44; PULSE 77
== END 2023-01-25 19:27 | disposition home or self-care (01) ==
LOC: MW.ED 16:37
DX: D63.1 Anemia in chronic kidney disease (principal); N18.6 End stage renal disease; I25.2 Old myocardial infarction; E78.00 Pure hypercholesterolemia, unspecified; K21.9 Gastro-esophageal reflux disease without esophagitis; E66.9 Obesity, unspecified; Z68.23 Body mass index [BMI] 23.0-23.9, adult; Z79.84 Long term (current) use of oral hypoglycemic drugs; Z79.899 Other long term (current) drug therapy
CPT/HCPCS: 36415; 85014; 85018; 86850; 86900; 86901; 86920; 99284; A9270; J3490; 99285

== ENCOUNTER 2023-04-01 21:20 | Emergency (ER) | payer MEDICARE, MEDICAID ==
[2023-04-01] MEDS ORDERED: oxyCODONE 5 MG Tab PO ONE (21:40)
[2023-04-02] MEDS ORDERED: oxyCODONE 5 MG Tab PO ONE (00:29)
[2023-04-02 00:34] VITALS: BP 145/64; PULSE 65
== END 2023-04-02 00:33 | disposition home or self-care (01) ==
LOC: MW.ED 21:20
DX: M79.81 Nontraumatic hematoma of soft tissue (principal); E78.00 Pure hypercholesterolemia, unspecified; I25.2 Old myocardial infarction; K21.9 Gastro-esophageal reflux disease without esophagitis; E66.9 Obesity, unspecified; Z68.23 Body mass index [BMI] 23.0-23.9, adult; Z79.899 Other long term (current) drug therapy
CPT/HCPCS: 93931; 99283; A9270; 99282

== ENCOUNTER 2023-05-08 09:15 | Emergency (ER) | payer MEDICARE, MEDICAID ==
[2023-05-08 09:38] VITALS: BP 161/51; PULSE 47
[2023-05-08 11:03] LABS: BASOPHILS ABSOLUTE AUTO 0.05 K/uL (0.00-0.20); BASOPHILS PERCENT AUTO 0.9 % (0.0-1.0); EOSINOPHILS ABSOLUTE AUTO 0.09 K/uL (0.00-0.45); EOSINOPHILS PERCENT AUTO 1.6 % (0.0-6.0); HEMATOCRIT 29.7 % (37.0-47.0); IMMATURE GRAN ABSOLUTE AUTO 0.08 K/uL (0.00-0.05); IMMATURE GRAN PERCENT AUTO 1.4 % (0.0-0.4); LYMPHOCYTES PERCENT AUTO 7.2 % (24.0-44.0); MEAN CORPUSCULAR HEMOGLOBIN 32.5 pg (28.0-32.0); MEAN CORPUSCULAR HGB CONC 33.7 g/dL (32.0-36.0); MEAN CORPUSCULAR VOLUME 96.4 fL (83.0-99.0); MEAN PLATELET VOLUME 10.6 fL (9.4-12.3); MONOCYTES PERCENT AUTO 10.8 % (0.0-8.0); NEUTROPHILS ABSOLUTE AUTO 4.35 K/uL (1.80-7.70); NEUTROPHILS PERCENT AUTO 78.1 % (41.0-71.0); PLATELET COUNT,PLT 203 K/uL (150-400); RED BLOOD CELL COUNT 3.08 M/uL (4.10-5.30); WHITE BLOOD CELL COUNT,WBC 5.57 K/uL (3.9-11.3)
[2023-05-08 11:33] LABS: LACTIC ACID 0.4 mmol/L (0.4-2.0)
[2023-05-08 11:43] LABS: A/G RATIO 0.6 (0.9-1.6); ALBUMIN 2.7 g/dL (3.4-5.0); BILIRUBIN TOTAL 0.8 mg/dL (0.2-1.0); CALCIUM 8.9 mg/dL (8.5-10.1); CARBON DIOXIDE,CO2 14.8 mmol/L (21.0-32.0); CREATININE 10.5 mg/dL (0.6-1.0); EST CRCL DRUG DOSING (CG) 4.18 mL/min
[2023-05-08 11:45] LABS: POTASSIUM,K 7.9 mmol/L (3.5-5.1)
[2023-05-08 11:55] LABS: CORONAVIRUS COVID-19 NAA NEGATIVE (NEGATIVE); INFLUENZA A NAA NEGATIVE (NEGATIVE); INFLUENZA B NAA NEGATIVE (NEGATIVE); RESPIRATORY SYNCYTIAL VIR NAA NEGATIVE (NEGATIVE)
== END 2023-05-08 11:28 | disposition left against medical advice (07) ==
LOC: MW.ED 09:15
DX: M79.10 Myalgia, unspecified site (principal); E87.5 Hyperkalemia; N18.6 End stage renal disease; I25.2 Old myocardial infarction; K21.9 Gastro-esophageal reflux disease without esophagitis; E11.9 Type 2 diabetes mellitus without complications; R00.1 Bradycardia, unspecified; Z88.5 Allergy status to narcotic agent; Z79.899 Other long term (current) drug therapy; Z20.822 Contact with and (suspected) exposure to COVID-19
CPT/HCPCS: 0241U; 36415; 71045; 80053; 82550; 83605; 84484; 85025; 93005; 99284; 93010; 99283

== ENCOUNTER 2023-06-07 14:57 | Emergency (ER) | payer MEDICARE, MEDICAID | END 2023-06-07 15:44 | disposition left against medical advice (07) | LOC: MW.ED 14:57 | DX: Z53.21 Procedure and treatment not carried out due to patient leaving prior to being seen by health care provider (principal) ==

== ENCOUNTER 2023-07-26 14:37 | Emergency (ER) | payer MEDICARE, MEDICAID ==
[2023-07-26] MEDS ORDERED: Sodium Chloride 0.9% 10 ML Syringe FLUSH PRN (15:44)
[2023-07-26] MEDS ORDERED: Sodium Chloride 0.9% 2.5 ML Syringe FLUSH PRN (15:44)
[2023-07-26 15:55] LABS: BASOPHILS ABSOLUTE AUTO 0.07 K/uL (0.00-0.20); EOSINOPHILS ABSOLUTE AUTO 0.18 K/uL (0.00-0.45); EOSINOPHILS PERCENT AUTO 2.5 % (0.0-6.0); HEMOGLOBIN 9.7 g/dL (12.0-16.0); IMMATURE GRAN ABSOLUTE AUTO 0.06 K/uL (0.00-0.05); IMMATURE GRAN PERCENT AUTO 0.8 % (0.0-0.4); LYMPHOCYTES ABSOLUTE AUTO 1.28 K/uL (1.00-4.80); LYMPHOCYTES PERCENT AUTO 17.7 % (24.0-44.0); MEAN CORPUSCULAR HGB CONC 31.3 g/dL (32.0-36.0); MEAN CORPUSCULAR VOLUME 102.3 fL (83.0-99.0); MEAN PLATELET VOLUME 10.3 fL (9.4-12.3); MONOCYTES ABSOLUTE AUTO 0.81 K/uL (0.00-0.80); MONOCYTES PERCENT AUTO 11.2 % (0.0-8.0); NEUTROPHILS ABSOLUTE AUTO 4.82 K/uL (1.80-7.70); NEUTROPHILS PERCENT AUTO 66.8 % (41.0-71.0); PLATELET COUNT,PLT 257 K/uL (150-400); RED BLOOD CELL COUNT 3.03 M/uL (4.10-5.30); WHITE BLOOD CELL COUNT,WBC 7.22 K/uL (3.9-11.3)
[2023-07-26 16:05] LABS: INR 1.05 (0.86-1.11)
[2023-07-26 16:23] LABS: A/G RATIO 0.7 (0.9-1.6); ALBUMIN 2.9 g/dL (3.4-5.0); BILIRUBIN TOTAL 0.3 mg/dL (0.2-1.0); CALCIUM 8.6 mg/dL (8.5-10.1); CARBON DIOXIDE,CO2 36.1 mmol/L (21.0-32.0); CREATININE 2.8 mg/dL (0.6-1.0); EST CRCL DRUG DOSING (CG) 16.37 mL/min; POTASSIUM,K 2.6 mmol/L (3.5-5.1); PROTEIN TOTAL,TP 6.9 g/dL (6.4-8.2)
[2023-07-26] MEDS ORDERED: amLODIPine 5 MG Tab PO ONE (17:02)
[2023-07-26 17:36] LABS: CALCIUM 8.5 mg/dL (8.5-10.1); CARBON DIOXIDE,CO2 35.1 mmol/L (21.0-32.0); CREATININE 3.3 mg/dL (0.6-1.0); EST CRCL DRUG DOSING (CG) 13.89 mL/min; POTASSIUM,K 2.7 mmol/L (3.5-5.1)
[2023-07-26] MEDS ORDERED: Potassium Chloride 20 MEQ Tab.ER PO STA (17:59)
[2023-07-26 20:04] VITALS: BP 151/112; PULSE 75
== END 2023-07-26 18:16 | disposition home or self-care (01) ==
LOC: MW.ED 14:37
DX: R51.9 Headache, unspecified (principal); I10 Essential (primary) hypertension; K21.9 Gastro-esophageal reflux disease without esophagitis; E11.9 Type 2 diabetes mellitus without complications; Z88.5 Allergy status to narcotic agent; Z79.899 Other long term (current) drug therapy; Z90.710 Acquired absence of both cervix and uterus
CPT/HCPCS: 36415; 70450; 71045; 80048; 80053; 83690; 84484; 85025; 85610; 93005; 99284; A9270; J3490